=== PATIENT | male | born 1960 | race Caucasian/White ===

== ENCOUNTER 2018-02-06 12:58 | Emergency (ER) | payer OTHER ==
[2018-02-06 13:54] LABS: PLATELET COUNT 221 10^3/uL (150-400)
[2018-02-06] MEDS ORDERED: MAG HYDROX/AL HYDROX/SIMETH 30 ML UDCUP PO ONE (14:01)
[2018-02-06] MEDS ORDERED: LIDOCAINE 2% VISCOUS 15 ML UDCUP PO ONE (14:01)
[2018-02-06] MEDS ORDERED: HYOSCYAMINE SULFATE 0.125 MG TAB PO ONE (14:01)
--- NOTE | 2018-02-06 14:03 | EDPHY ---
H & P Stated Complaint: CP/HTN Time Seen by Provider: 02/06/18 13:36 HPI/ROS: CHIEF COMPLAINT: Chest pain, elevated blood pressure HISTORY OF PRESENT ILLNESS: 57-year-old male with hypertension presents with chest pain and elevated blood pressure. Approximately 1 hr ago he was sitting at his computer, when he had onset of lower chest discomfort. The discomfort is a vague sensation, that increases with deep inspiration and is improved with rest. Took his blood pressure at home and it was elevated, so took 2 extra doses of lisinopril. No change with exertion. Hiked for 4 miles briskly in the [facility] this morning and did not have cp or SOB. No shortness of breath or other associated symptoms. History of similar chest discomfort in 2013. Had a cardiac catheterization at that time that revealed mild to moderate coronary artery disease, according to the patient. REVIEW OF SYSTEMS: complete 10 point ROS reviewed and is negative except for the noted elements in the HPI - Personal History Current Tetanus Diphtheria and Acellular Pertussis (TDAP): Yes - Medical/Surgical History Hx Asthma: No Hx Chronic Respiratory Disease: No Hx Diabetes: No Hx Cardiac Disease: No Hx Renal Disease: No Hx Cirrhosis: No Hx Alcoholism: No Hx HIV/AIDS: No Hx Splenectomy or Spleen Trauma: No Other PMH: HTN, Meadows's esophagitis,. GERD. Hernia repair. CPAP - Social History Smoking Status: Former smoker Alcohol Use: Sober - Physical Exam Exam: General Appearance: Alert, pleasant Eyes: Pupils equal and round, no conjunctival pallor or injection ENT, Mouth: Mucous membranes moist Neck: Normal inspection Respiratory: Normal inspection, no chest wall tenderness, Lungs are clear to auscultation Cardiovascular: Regular rate and rhythm Gastrointestinal: Abdomen is soft and nontender Neurological: A&O, nonfocal exam Skin: Warm and dry, no rash Extremities: Nontender, no pedal edema Psychiatric: Mood and affect normal Constitutional: Initial Vital Signs Temperature (C) 37 C 02/06/18 13:10 Heart Rate 73 02/06/18 13:10 Respiratory Rate 18 02/06/18 13:10 Blood Pressure 201/111 H 02/06/18 13:10 O2 Sat (%) 95 02/06/18 13:10 O2 Delivery Mode Room Air Allergies/Adverse Reactions: No Known Allergies Allergy (Unverified 08/25/14 07:23) Home Medications: Medication Instructions Recorded Lisinopril 02/06/18 Medical Decision Making - Diagnostics EKG Interpretation: EKG interpreted by me reveals normal sinus rhythm, rate 66, no ST or T segment changes. Interpretation: Normal EKG Imaging Results: Imaging Impressions Chest X-Ray 02/06/18 13:22 Impression: Negative chest. Low lung volumes with bibasilar atelectasis.. Imaging: I viewed and interpreted images myself ED Course/Re-evaluation: This patient with known coronary artery disease presents with atypical chest pain. Stat EKG reveals no evidence of ischemia or dysrhythmia and initial troponin is normal. Heart score is 4, advised admission for further evaluation. Pt declines. He is clearly a competent decision maker and understands the risks and benefits of this decision. Options of repeating troponin and EKG discussed and the patient agrees to this option. 5:00 p.m.-repeat troponin is 0 and EKG is unchanged. Patient feels much better and now has slight discomfort similar to prior episodes of esophagitis. He already took omeprazole at home. He will return for worsening symptoms or any concerns. Most likely this episode of chest discomfort is related to esophagitis, doubt acute coronary syndrome. The patient understands that we cannot fully exclude acute coronary syndrome in accepts the risks associated with this. Differential Diagnosis: Differential diagnosis includes though it is not limited to pneumonia, pneumothorax, pulmonary embolism, aortic dissection, pericarditis, acute coronary syndrome. - Data Points Laboratory Results: Laboratory Results 02/06/18 13:21 02/06/18 13:21 02/06/18 02/06/18 02/06/18 16:36 14:10 13:21 WBC RBC Hgb Hct MCV MCH MCHC RDW Plt Count MPV Neut % (Auto) Lymph % (Auto) Crawford % (Auto) Eos % (Auto) Baso % (Auto) Nucleat RBC Rel Count Absolute Neuts (auto) Absolute Lymphs (auto) Absolute Monos (auto) Absolute Eos (auto) Absolute Basos (auto) Absolute Nucleated RBC Immature Gran % Immature Gran # D-Dimer Sodium Potassium Chloride Carbon Dioxide Anion Gap BUN Creatinine Estimated GFR Glucose Calcium POC Troponin I 0.00 ng/mL ng/mL 0.01 ng/mL ng/mL (0.00-0.08) (0.00-0.08) NT-Pro-B Natriuret Pep 61 pg/mL pg/mL (0-125) 02/06/18 02/06/18 02/06/18 13:21 13:21 13:21 WBC 6.61 10^3/uL 10^3/uL (3.80-9.50) RBC 5.13 10^6/uL 10^6/uL (4.40-6.38) Hgb 16.0 g/dL g/dL (13.7-17.5) Hct 46.1 % % (40.0-51.0) MCV 89.9 fL fL (81.5-99.8) MCH 31.2 pg pg (27.9-34.1) MCHC 34.7 g/dL g/dL (32.4-36.7) RDW 12.5 % % (11.5-15.2) Plt Count 221 10^3/uL 10^3/uL (150-400) MPV 9.2 fL fL (8.7-11.7) Neut % (Auto) 67.1 % % (39.3-74.2) Lymph % (Auto) 22.8 % % (15.0-45.0) Crawford % (Auto) 8.3 % % (4.5-13.0) Eos % (Auto) 1.2 % % (0.6-7.6) Baso % (Auto) 0.3 % % (0.3-1.7) Nucleat RBC Rel Count 0.0 % % (0.0-0.2) Absolute Neuts (auto) 4.43 10^3/uL 10^3/uL (1.70-6.50) Absolute Lymphs (auto) 1.51 10^3/uL 10^3/uL (1.00-3.00) Absolute Monos (auto) 0.55 10^3/uL 10^3/uL (0.30-0.80) Absolute Eos (auto) 0.08 10^3/uL 10^3/uL (0.03-0.40) Absolute Basos (auto) 0.02 10^3/uL 10^3/uL (0.02-0.10) Absolute Nucleated RBC 0.00 10^3/uL 10^3/uL (0-0.01) Immature Gran % 0.3 % % (0.0-1.1) Immature Gran # 0.02 10^3/uL 10^3/uL (0.00-0.10) D-Dimer 0.42 ug/mLFEU ug/mLFEU (0.00-0.50) Sodium 140 mEq/L mEq/L (135-145) Potassium 4.3 mEq/L mEq/L (3.3-5.0) Chloride 103 mEq/L mEq/L (97-110) Carbon Dioxide 27 mEq/l mEq/l (22-31) Anion Gap 10 mEq/L mEq/L (8-16) BUN 23 mg/dL mg/dL (7-23) Creatinine 1.4 mg/dL H mg/dL (0.7-1.3) Estimated GFR 52 Glucose 101 mg/dL H mg/dL (70-100) Calcium 9.5 mg/dL mg/dL (8.5-10.4) POC Troponin I NT-Pro-B Natriuret Pep Medications Given: Discontinued Medications Al Hydroxide/Mg Hydroxide (Maalox Susp) 30 ml PO ONCE ONE Stop: 02/06/18 14:02 Last Admin: 02/06/18 14:14 Dose: 30 ml Hyoscyamine Sulfate (Levsin, Hyomax-Sl) 0.25 mg PO ONCE ONE Stop: 02/06/18 14:02 Last Admin: 02/06/18 14:12 Dose: 0.25 mg Lidocaine (Lidocaine 2% Viscous) 15 ml PO ONCE ONE Stop: 02/06/18 14:02 Last Admin: 02/06/18 14:14 Dose: 15 ml Point of Care Test Results: Chemistry 02/06/18 02/06/18 16:36 14:10 POC Troponin I 0.00 ng/mL ng/mL 0.01 ng/mL ng/mL (0.00-0.08) (0.00-0.08) Departure - Departure Disposition: Home, Routine, Self-Care Clinical Impression: Chest pain Qualifiers: Chest pain type: unspecified Qualified Code(s): R07.9 - Chest pain, unspecified Condition: Good Instructions: Chest Pain (ED) Additional Instructions: Continue taking an aspirin daily. Take Prilosec daily. Take and record your blood pressure twice daily. Your blood pressure is running high today. Return for worsening symptoms or any concerns. Referrals: Caron Moss MD [Medical Doctor] - As per Instructions (Call to make an appointment.)
[2018-02-06 17:27] VITALS: BP 168/89
--- NOTE | 2018-02-06 18:49 | CPEKG ---
Test Reason : OPEN Blood Pressure : / mmHG Vent. Rate : 074 BPM Atrial Rate : 069 BPM P-R Int : 169 ms QRS Dur : 101 ms QT Int : 428 ms P-R-T Axes : 058 025 070 degrees QTc Int : 475 ms Sinus rhythm Confirmed by Kalani Grey ([id number]) on 02/06/2018 6:48:54 PM Referred By: Confirmed By:Kalani Grey
--- NOTE | 2018-02-06 18:49 | CPEKG ---
Test Reason : OPEN Blood Pressure : / mmHG Vent. Rate : 066 BPM Atrial Rate : 066 BPM P-R Int : 177 ms QRS Dur : 095 ms QT Int : 412 ms P-R-T Axes : 053 031 056 degrees QTc Int : 432 ms Sinus rhythm Confirmed by Kalani Grey ([id number]) on 02/06/2018 6:48:43 PM Referred By: Confirmed By:Kalani Grey
== END 2018-02-06 17:27 | disposition home or self-care (01) ==
DX: I25.10 Atherosclerotic heart disease of native coronary artery without angina pectoris (principal); J98.4 Other disorders of lung; I10 Essential (primary) hypertension; Z87.891 Personal history of nicotine dependence
CPT/HCPCS: 84484-PO

== ENCOUNTER 2018-05-23 16:36 | Emergency (ER) | payer OTHER ==
--- NOTE | 2018-05-23 17:26 | EDPHY ---
H & P Stated Complaint: elevated BP Source: Patient, Old records Exam Limitations: No limitations - Medical/Surgical History Hx Asthma: No Hx Chronic Respiratory Disease: No Hx Diabetes: No Hx Cardiac Disease: No Hx Renal Disease: No Hx Cirrhosis: No Hx Alcoholism: No Hx HIV/AIDS: No Hx Splenectomy or Spleen Trauma: No Other PMH: HTN, Meadows's esophagitis,. GERD. Hernia repair. CPAP - Social History Smoking Status: Former smoker Time Seen by Provider: 05/23/18 17:22 HPI/ROS: HPI: This is a 57-year-old male who presents with Chief Complaint: Hypertension Location: Heart Quality: Elevated blood pressure Duration: Since yesterday Signs and Symptoms: no shortness of breath at rest, no shortness of breath on exertion, no cough, no chest pain, no palpitations, no lower extremity edema, no wheezing, no orthopnea, no paroxysmal nocturnal dyspnea, no fever, no injury/ trauma, no hemoptysis, no carpal pedal spasms, + lightheadedness Timing: Acute on chronic Severity: Moderate Context: The patient reports that he has a history of hypertension and takes lisinopril 4 times a day 20 mg tabs up to 80 mg daily for the last several years. Patient presents with home blood pressure readings of systolic 190s and 200s yesterday into today, readings 2-3 times occurring. Patient reports that he does not have chest pain, shortness of breath, lower extremity edema, palpitations. Patient reports that this dizziness is described more as lightheadedness and not as the room is spinning. Patient denies any headache. Patient reports that yesterday when he checked his blood pressure his heart rate registered around 180 beats per minute and lasted for several seconds. In 2011 he had a cardiac catheterization performed by Dr. Caron Moss that had moderate plaque but did not require any stenting. He takes baby aspirin daily and does not take statin daily. Patient reports that he has appointment tomorrow with Dr. Estrada. Patient denies any increased anxiety, stress. He reports that his palms are sweaty. He denies nausea, vomiting, diaphoresis. Modifying Factors: Comment: ROS: A comprehensive 10 system review of systems is otherwise negative aside from elements mentioned in the history of present illness. MEDICAL/SURGICAL/SOCIAL HISTORY: Medical history: HTN, Meadows's esophagitis, GERD, TESS on CPAP Surgical history: Hernia repair Social history: Nonsmoker. Denies drug use. CONSTITUTIONAL: Polite and cooperative middle-aged white male, awake and alert , no obvious distress HEENT: Atraumatic and normocephalic, PERRL, EOMI. Wears glasses. Nares patent ; no rhinorrhea; no nasal mucosal edema. Tympanic membranes clear. Oropharynx clear, no exudate and moist pink mucosa. Airway patent. No lymphadenopathy. No meningismus. Cardiovascular: Normal S1/S2, regular rate, regular rhythm, without murmur rub or gallop. PULMONARY/CHEST: Symmetrical and nontender. Clear to auscultation bilaterally. Good air movement. No accessory muscle usage. ABDOMEN: Soft, nondistended, nontender, no rebound, no guarding, no peritoneal signs, no masses or organomegaly. No CVAT. EXTREMITIES: 2/2 pulses, strength 5/5, no deformities, no clubbing, no cyanosis or edema. NEUROLOGICAL: no focal neuro deficits. GCS 15. SKIN: Warm and dry, no erythema. no rash. Good capillary refill. (Gabriela Mchugh) Constitutional: Initial Vital Signs Temperature (C) 36.9 C 05/23/18 16:41 Heart Rate 80 05/23/18 16:41 Respiratory Rate 18 05/23/18 16:41 Blood Pressure 222/109 H 05/23/18 16:41 O2 Sat (%) 95 05/23/18 16:41 O2 Delivery Mode Room Air Allergies/Adverse Reactions: No Known Allergies Allergy (Unverified 05/23/18 16:40) Home Medications: Medication Instructions Recorded Lisinopril 02/06/18 amLODIPine BESYLATE [Norvasc 5 mg 5 mg PO DAILY #30 tab 05/23/18 (*)] Medical Decision Making - Diagnostics EKG Interpretation: 12 lead EKG: Indication: Hypertension Rhythm: Normal sinus rhythm, rate of 67 beats per minute [place]: Normal Intervals: Normal QRS: Normal ST segments: Nonspecific changes INTERPRETATION: No acute ischemic changes The 12 lead EKG was interpreted by myself and with attending. (Gabriela Mchugh) EKG interpreted by me shows normal sinus rhythm normal interval and axis. QRS is normal there is no significant ST elevation or depression. No arrhythmia. The rate is 67 (Romario Cloud S) ED Course/Re-evaluation: Blood pressure 222/109 with a heart rate of ED beats per minute upon arrival. After 30 min in the room repeat blood pressure 193/97. Patient placed on shelter monitor IV access, laboratory studies to evaluate for end-organ damage, including POC troponin and EKG ordered Patient is mildly symptomatic with lightheadedness. 174: EKG my read with attending shows normal sinus rhythm with rate of 67 beats per minute with nonspecific ST changes but no acute ischemic changes. 174: Notified by [place] that troponin 0.01 175: Labs reviewed. No signs of leukocytosis/anemia/platelet dysfunction/HARPREET/ elevated LFTs/electrolyte imbalance/ACS/VTE. 1807: ED decision to consult Cardiology. Spoke with Dr. Steele who recommends lisinopril 40 mg daily, Norvasc 5 mg daily, chlorthalidone 12.5 mg daily. Give Norvasc 10 mg now. Keep follow-up appointment on with Dr. Estrada. I Did confirm that patient has a home blood pressure cuff. 181: Blood Pressure 180/110 Pre it for discharge home with outpatient follow-up. This patient was seen under the supervision of my secondary supervising physician. I evaluated care for this patient with attending. Discussed this patient with Dr. Cloud who did not see the patient. (Gabriela Mchugh) I did not see this patient while he was in the emergency department. However his care was discussed with the PA while the patient was in the department. I agree with treatment plan and management (Romario Cloud) Differential Diagnosis: Chest pain including but not limited to myocardial ischemia, pulmonary embolus, chest wall pain, pleural inflammation and pulmonary infectious causes. (Gabriela Mchugh) - Data Points Laboratory Results: Laboratory Results 05/23/18 17:31 05/23/18 17:31 05/23/18 05/23/18 05/23/18 17:36 17:31 17:31 WBC RBC Hgb Hct MCV MCH MCHC RDW Plt Count MPV Neut % (Auto) Lymph % (Auto) [place]ift % (Auto) Eos % (Auto) Baso % (Auto) Nucleat RBC Rel Count Absolute Neuts (auto) Absolute Lymphs (auto) Absolute Monos (auto) Absolute Eos (auto) Absolute Basos (auto) Absolute Nucleated RBC Immature Gran % Immature Gran # PT 12.7 SEC SEC (12.0-15.0) INR 0.93 (0.83-1.16) APTT 25.4 SEC SEC (23.0-38.0) D-Dimer 0.45 ug/mLFEU ug/mLFEU (0.00-0.50) Sodium 136 mEq/L mEq/L (135-145) Potassium 3.7 mEq/L mEq/L (3.5-5.2) Chloride 103 mEq/L mEq/L (97-110) Carbon Dioxide 25 mEq/l mEq/l (22-31) Anion Gap 8 mEq/L mEq/L (6-14) BUN 19 mg/dL mg/dL (7-23) Creatinine 1.0 mg/dL mg/dL (0.7-1.3) Estimated GFR > 60 Glucose 103 mg/dL H mg/dL (70-100) Calcium 8.8 mg/dL mg/dL (8.5-10.4) Magnesium 1.9 mg/dL mg/dL (1.6-2.3) POC Troponin I 0.01 ng/mL ng/mL (0.00-0.08) 05/23/18 17:31 WBC 5.72 10^3/uL 10^3/uL (3.80-9.50) RBC 4.95 10^6/uL 10^6/uL (4.40-6.38) Hgb 15.5 g/dL g/dL (13.7-17.5) Hct 43.9 % % (40.0-51.0) MCV 88.7 fL fL (81.5-99.8) MCH 31.3 pg pg (27.9-34.1) MCHC 35.3 g/dL g/dL (32.4-36.7) RDW 12.2 % % (11.5-15.2) Plt Count 214 10^3/uL 10^3/uL (150-400) MPV 8.9 fL fL (8.7-11.7) Neut % (Auto) 64.6 % % (39.3-74.2) Lymph % (Auto) 24.0 % % (15.0-45.0) Tift % (Auto) 9.8 % % (4.5-13.0) Eos % (Auto) 1.0 % % (0.6-7.6) Baso % (Auto) 0.3 % % (0.3-1.7) Nucleat RBC Rel Count 0.0 % % (0.0-0.2) Absolute Neuts (auto) 3.69 10^3/uL 10^3/uL (1.70-6.50) Absolute Lymphs (auto) 1.37 10^3/uL 10^3/uL (1.00-3.00) Absolute Monos (auto) 0.56 10^3/uL 10^3/uL (0.30-0.80) Absolute Eos (auto) 0.06 10^3/uL 10^3/uL (0.03-0.40) Absolute Basos (auto) 0.02 10^3/uL 10^3/uL (0.02-0.10) Absolute Nucleated RBC 0.00 10^3/uL 10^3/uL (0-0.01) Immature Gran % 0.3 % % (0.0-1.1) Immature Gran # 0.02 10^3/uL 10^3/uL (0.00-0.10) PT INR APTT D-Dimer Sodium Potassium Chloride Carbon Dioxide Anion Gap BUN Creatinine Estimated GFR Glucose Calcium Magnesium POC Troponin I Medications Given: Discontinued Medications Amlodipine Besylate (Norvasc) 10 mg PO EDNOW ONE Stop: 05/23/18 18:07 Last Admin: 05/23/18 18:13 Dose: 10 mg Point of Care Test Results: Chemistry 05/23/18 17:36 POC Troponin I 0.01 ng/mL ng/mL (0.00-0.08) Departure - Departure Disposition: Home, Routine, Self-Care Clinical Impression: Essential hypertension, Elevated blood pressure reading Condition: Good Instructions: Low-Sodium Diet (ED), Hypertension (ED) Additional Instructions: Only take lisinopril 40 mg maximum daily. Start taking Norvasc 5 mg daily starting tomorrow. Start taking chlorthalidone 12.5 mg every morning starting tomorrow. I have hand written a prescription for this medication. Keep follow-up appointment with Cardiology tomorrow. Referrals: Cezar Estrada MD [Medical Doctor] - 05/24/18 Prescriptions: amLODIPine BESYLATE [Norvasc 5 mg (*)] 5 mg PO DAILY #30 tab
[2018-05-23 17:40] LABS: PLATELET COUNT 214 10^3/uL (150-400)
[2018-05-23 17:49] LABS: INR 0.93 (0.83-1.16); PROTIME(PATIENT) 12.7 SEC (12.0-15.0)
--- NOTE | 2018-05-23 17:53 | CPEKG ---
Test Reason : OPEN Blood Pressure : / mmHG Vent. Rate : 067 BPM Atrial Rate : 066 BPM P-R Int : 167 ms QRS Dur : 099 ms QT Int : 421 ms P-R-T Axes : 050 017 046 degrees QTc Int : 445 ms Sinus rhythm Confirmed by Romario Cloud ([id number]) on 05/23/2018 5:52:47 PM Referred By: Confirmed By:Romario Cloud
[2018-05-23] MEDS ORDERED: amLODIPine BESYLATE 5 MG TAB PO ONE (18:06)
[2018-05-23 18:11] VITALS: BP 184/101
== END 2018-05-23 18:35 | disposition home or self-care (01) ==
DX: I10 Essential (primary) hypertension (principal); K21.9 Gastro-esophageal reflux disease without esophagitis; Z79.899 Other long term (current) drug therapy; Z87.891 Personal history of nicotine dependence
CPT/HCPCS: 84484-ER

== ENCOUNTER 2018-07-01 07:25 | Day surgery (SDC) | payer OTHER ==
[2018-07-01] MEDS ORDERED: MIDAZOLAM 2 MG/2 ML VIAL IVP ONE (07:29)
[2018-07-01] MEDS ORDERED: BENZOCAINE UNIT DOSE SPRAY HURRICAINE MM ONE (07:29)
[2018-07-01] MEDS ORDERED: NS 500 ML IV ONE (07:29)
[2018-07-01] MEDS ORDERED: fentaNYL 100 MCG/2 ML INJ IVP ONE (07:29)
--- NOTE | 2018-07-01 08:37 | PDHPUP ---
History & Physical Update H&P update statement: This history and physical update is based on an assessment of the patient which was completed after admission or registration (within 24 hours), but prior to the surgery/procedure. H&P update: H&P reviewed & patient examined, no change in patient's condition since H&P completed (Assessment, via HERMINIA, of the patient's aortic valve morphology)
[2018-07-01] MEDS ORDERED: LIDOCAINE 1% 5 ML SDV ONE (08:52)
[2018-07-01] MEDS ORDERED: PROPOFOL 200 MG/20 ML VIAL ONE (08:52)
[2018-07-01] MEDS ORDERED: NALOXONE HCL 0.4 MG/ML INJ IVP PRN (09:12)
--- NOTE | 2018-07-01 09:12 | PDANEPAE ---
ANE History of Present Illness poss bileaflet aortic valve ANE Past Medical History - Cardiovascular History Hx Hypertension: Yes Hx Arrhythmias: No Hx Chest Pain: No Hx Coronary Artery / Peripheral Vascular Disease: No Hx CHF / Valvular Disease: No Hx Palpitations: No Cardiovascular History Comment: Phtn, PAP 44mmHg - Pulmonary History Hx COPD: No Hx Oxygen in Use at Home: No Hx Sleep Apnea: Yes - Endocrine History Hx Diabetes: No Hypothyroid: No Hyperthyroid: No Obesity: yes, moderate - Renal History Hx Renal Disorders: No - Liver History Hx Hepatic Disorders: No - Neurological & Psychiatric Hx Hx Neurological and Psychiatric Disorders: No - Cancer History Hx Cancer: No - Congenital Disorder History Hx Congenital Disorders: No - GI History Hx Gastrointestinal Disorders: No ANE Review of Systems Review of systems is: negative Review of Systems: - Exercise capacity Exercise capacity: >=4 METS ANE Patient History - Allergies Allergies/Adverse Reactions: No Known Allergies Allergy (Unverified 05/23/18 16:40) - Home Medications Home Medications: Lisinopril 40 mg PO DAILY 02/06/18 [Last Taken 07/01/18 06:00] Aspirin 81 mg PO DAILY 07/01/18 [Last Taken 07/01/18 06:00] Chlorthalidone 25 mg PO DAILY 07/01/18 [Last Taken 07/01/18 06:00] Omeprazole 40 mg PO HS 07/01/18 [Last Taken 06/30/18 21:00] - NPO status NPO Status: no food or drink >8 hours - Anes Hx Anes Hx: no prior problems - Smoking Hx Smoking Status: Former smoker - Alcohol Use Alcohol Use: None - Family Anes Hx Family Anes Hx: none ANE Labs/Vital Signs - Vital Signs Vital Signs: reviewed preoperatively; see RN documention for details Height: 175 cm Weight: 97.5 kg ANE Physical Exam - Airway Neck exam: FROM Mallampati Score: Class 2 Mouth exam: normal dental/mouth exam - Pulmonary Pulmonary: no respiratory distress - Cardiovascular Cardiovascular: regular rate and rhythym - ASA Status ASA Status: II ANE Anesthesia Plan Anesthesia Plan: GA with mask
--- NOTE | 2018-07-01 09:13 | POSTANESTH ---
Post Anesthetic Evaluation Cardiovascular Status: Normal, Stable Respiratory Status: Normal, Stable Level of Consciousness/Mental Status: Can Participate in Eval Pain Control: Adequate, Prn Tx Ordered Nausea/Vomiting Control: Adequate, Prn Tx Ordered Complications Possibly Related to Anesthesia: None Noted
--- NOTE | 2018-07-01 09:14 | PDCARTEE ---
CAR HERMINIA CAR HERMINIA: After consents for both sedation (anesthesia) and HERMINIA (cardiology) were signed and placed in the chart, the patient was then placed on his left lateral side to facilitate ease of HERMINIA probe placement. The HERMINIA probe was placed without difficulty, and standard views were obtained. Preliminary report: (1) Normal LVEF (55-60%) (2) Normal atrial chamber dimensions (3) Grossly normal mitral valve with trace/mild regurgitation (4) Trileaflet aortic valve with very eccentric insufficiency jet (mild degree of insufficiency) - no stenosis was noted (5) Grossly normal tricuspid valve without appreciable noted (6) Grossly normal pulmonic valve (7) bubble contrast injection without right to left passage noted (8) No thrombus to the left atrial appendage (9) No atheroma to the descending or transverse aorta No complications were appreciated. Patient tolerated the procedure well. Follow up with outpatient cardiology as scheduled.
--- NOTE | 2018-07-05 17:55 | ECHO ---
[email or web address] [address] [address] Main: [phone] Fax: Transesophageal Echocardiography Name: HANNAH DWYER MR#: [id number] Study Date: 07/01/2018 Study Time: 08:50 AM Date of : 1960 Age: 57 year(s) Height: ( ) Weight: ( ) BSA: Gender: Male Examination: HERMINIA Indication: r/o bicuspid AV Image Quality: Adequate Contrast: I.V. dose of agitated saline Requested by: Cezar Estrada Heart Rate: Rhythm: BP: / Procedure Staff Rehabilitation Teacher: Danyell Lerma [facility] Reading Physician: Cezar Estrada MD Requesting Provider: HERMINIA Exam Details Contrast: I.V. dose of agitated saline Conclusions: Normal size left ventricle. Normal global systolic LV function. The left atrium is normal in size. An agitated saline study was performed and was negative for intracardiac shunting. No thrombus in left appendage. The right atrium is normal in size. Chiari's network discernible in right atrium. The mitral valve is normal in appearance. Trivial to mild mitral regurgitation. The aortic valve is tri-leaflet. Mild aortic valve regurgitation is present. Tricuspid valve not visualized. There is no pulmonic regurgitation seen. Measurements: Chambers Valvular Assessment AV/MV Valvular Assessment TV/PV Normal Normal Normal Name Value Range Name Value Range Name Value Range Additional Measurements: Patient: HANNAH DWYER Study Date: 07/01/2018 Page 1 of 2 08:50 AM Findings: Left Ventricle: Normal size left ventricle. Normal global systolic LV function. Left Atrium: The left atrium is normal in size. An agitated saline study was performed and was negative for intracardiac shunting. Left Atrial Appendage: No thrombus in left appendage. Right Atrium: The right atrium is normal in size. Chiari's network discernible in right atrium. Mitral Valve: The mitral valve is normal in appearance. Trivial to mild mitral regurgitation. Aortic Valve: The aortic valve is tri-leaflet. Mild aortic valve regurgitation is present. Tricuspid Valve: Tricuspid valve not visualized. Pulmonic Valve: The pulmonic valve is normal in appearance. There is no pulmonic regurgitation seen. Aorta: Normal size. Pericardium: No pericardial effusion. l1n (No Signature Object) Patient: HANNAH DWYER Study Date: 07/01/2018 Page 2 of 2 08:50 AM [id number]
== END 2018-07-01 10:37 | disposition home or self-care (01) ==
LOC: FCATH 07:25
PROVIDERS: ATTEND Internal Medicine Cardiovascular Disease
PROC: B246ZZ4 Ultrasonography of Right and Left Heart, Transesophageal (ICD-10-PCS; principal; 2018-07-01)
DX: I35.8 Other nonrheumatic aortic valve disorders (principal); I10 Essential (primary) hypertension; I27.20 Pulmonary hypertension, unspecified; G47.33 Obstructive sleep apnea (adult) (pediatric); I25.10 Atherosclerotic heart disease of native coronary artery without angina pectoris; E78.5 Hyperlipidemia, unspecified; K21.9 Gastro-esophageal reflux disease without esophagitis
CPT/HCPCS: J2704